=== PATIENT | female | born 1995 | race African-American/Black ===

== ENCOUNTER 2021-09-27 22:15 | Emergency (ER) | payer SELFPAY ==
[2021-09-27 22:19] VITALS: BP 120/84; RESP 20; TEMP 37.1; O2SAT 100
--- NOTE | 2021-09-27 22:20 | ECG_ITS ---
Measurements Intervals [place] Rate: 99 P: 38 CT: 165 QRS: 25 QRSD: 91 T: -5 QT: 325 QTc: 417 Interpretive Statements SINUS RHYTHM EARLY PRECORDIAL R/S TRANSITION MINIMA Q WAVES- HIGH LATERAL LEADS NONSPECIFIC T-WAVE ABNORMALITY- ANTEROLAT/INF LEADS BASELINE ARTIFACT- V3-V6 BORDERLINE ECG Electronically Signed On 09-28-2021 6:45:13 CABLE LACER by Cachorro Turcios D.O.
--- NOTE | 2021-09-27 22:26 | ED.OVERDOSE ---
HPI - Overdose General Chief Complaint: Overdose <Roldan Acuña MD - Last Filed: 09/28/21 01:38> Stated Complaint: INGESTION - SUICIDAL ATTEMPT <Roldan Acuña MD - Last Filed: 09/28/21 01:38> Time Seen by Provider: 09/28/21 02:00 <Roldan Acuña MD - Last Filed: 09/28/21 01:38> Source: patient, EMS and RN notes reviewed <Roldan Acuña MD - Last Filed: 09/28/21 01:38> History of Present Illness HPI Narrative: 26-year-old female [facility] to [facility] for evaluation after an intentional overdose. Patient states this evening she took multiple multivitamins and 22 loratadine with the intent of killing herself. Took the pills at 9 PM. Patient does have a prior history of overdose. Patient states she does have follow-up with a counselor. Patient states that she did this because she felt that she was not needed. Patient also does admit to drinking alcohol with this. <Roldan Acuña MD - Last Filed: 09/28/21 01:38> Related Data Home Medications: Home Medications Medication Instructions Recorded Confirmed No Home Medications 09/28/21 09/28/21 <Roldan Acuña MD - Last Filed: 09/28/21 01:38> Allergies/Adverse Reactions: Allergies Allergy/AdvReac Type Severity Reaction Status Date / Time No Known Allergies Allergy Verified 09/28/21 12:34 <Roldan Acuña MD - Last Filed: 09/28/21 01:38> Review of Systems Review of Systems: CONSTITUTIONAL: Denies fever, chills, or sweats. EYES: Denies visual changes, redness, or discharge. ENT: Denies rhinorrhea, congestion, sore throat, or otalgia. CARDIOVASCULAR: Denies chest pain, palpitations, or edema. RESPIRATORY: Denies cough or dyspnea. GASTROINTESTINAL: Denies abdominal pain, nausea, vomiting, or diarrhea. GENITOURINARY: Denies dysuria or hematuria. SKIN: Denies rash or itching. MUSCULOSKELETAL: Denies back pain, joint pain, or myalgia. NEUROLOGIC: Denies headache, numbness, or weakness. PSYCHIATRIC: Depression and suicidal ideation <Roldan Acuña MD - Last Filed: 09/28/21 01:38> Exam Narrative: APPEARANCE: Well appearing, no pain, no distress, well-nourished. HEAD: normocephalic, atraumatic. EYES: PERRLA/EOMI, conjunctivae clear. THROAT: Pharynx clear, no exudate. NECK: Supple. No adenopathy, no masses. RESPIRATORY: Airway patent, respirations nonlabored. Clear to auscultation bilaterally, no rales, rhonchi, wheezing. CARDIOVASCULAR: Regular rate and rhythm without murmurs rubs or gallops. ABDOMINAL: Soft, nontender, nondistended, normal bowel sounds MUSCULOSKELETAL: Moves all extremities. Strength/ROM intact, No edema, No calf tenderness. NEURO: Alert. Cranial nerves II through XII intact. SKIN: Warm, dry. Normal Color PSYCHIATRIC: flat affect <Roldan Acuña MD - Last Filed: 09/28/21 01:38> Course Course Emergency Course: Poison control was consulted. patient will be medically cleared after 6 hours (3 am). Patient will then need to be seen by the crisis counselor. Patient was signed out to Dr Joseph. <Roldan Acuña MD - Last Filed: 09/28/21 01:38> Reevaluation(s) Reevaluation #1: Patient excepted by Dr. Cardenas at [facility] he was transferred in stable condition <Usama Denson MD - Last Filed: 09/28/21 19:24> Date: 09/28/21 <Usama Denson MD - Last Filed: 09/28/21 19:24> Consultations Consultation #1: Patient was evaluated by crisis and she is a voluntary psychiatric admission patient is currently pending accepting facility <Usama Denson MD - Last Filed: 09/28/21 19:24> Date: 09/28/21 <Usama Denson MD - Last Filed: 09/28/21 19:24> Time: 09:07 <Usama Denson MD - Last Filed: 09/28/21 19:24> Vital Signs Vital signs: Vital Signs Temperature 37.1 C 09/27/21 22:19 Respiratory Rate 20 09/27/21 22:19 Blood Pressure 120/84 09/27/21 22:19 Pulse Oximetry 100 09/27/21 22:19 Temperature 37.1 C
[2021-09-27 22:27] VITALS: RESP 20
--- NOTE | 2021-09-27 22:43 | PC.NURSE ---
[id number] poison control contacted report do not expect to see and side effects from meds taken will fax over information on loratadine
[2021-09-27 22:49] LABS: Basophils Percent Auto 0.5 % (0.2-1.2); Eosinophils Absolute Auto 0.1 K/mm3 (0-0.3); Eosinophils Percent Auto 1.2 % (0-4.4); Hematocrit 33.8 % (37.0-47.0); Hemoglobin 10.7 g/dL (12.0-15.0); Immature Granulocyte Absolute 0.02 K/mm3 (0.00-0.031); Immature Granulocyte Percent A 0.3 % (0-0.5); Lymphocytes Absolute Auto 2.46 K/mm3 (0.9-3.2); Lymphocytes Percent Auto 37.6 % (18.3-44.2); Mean Corpuscular HGB Conc 31.7 g/dl (32-36); Mean Corpuscular Volume 85.4 fl (80-100); Mean Platelet Volume 9.8 fl (7.4-10.4); Monocytes Absolute Auto 0.5 K/mm3 (0.1-0.6); Monocytes Percent Auto 7.8 % (2.6-8.5); Neutrophils Absolute Auto 3.4 K/mm3 (1.3-6.7); Neutrophils Percent Auto 52.6 % (45.5-73.1); Platelet Count Result 312 k/mm3 (150-375); Red Blood Count 3.96 M/mm3 (4.2-5.4); Red Cell Distribution Width 15.5 % (11.5-14.5); White Blood Count 6.5 K/mm3 (4.5-10.0)
[2021-09-27 22:54] LABS: Glucose Point of Care 80 mg/dl (65-105)
[2021-09-27 22:55] LABS: Acetaminophen < 10 ug/mL (10-30); Ethanol 39 mg/dL (<10); Salicylate < 1.0 mg/dL (2-20)
[2021-09-27 22:57] LABS: Alanine Aminotransferase 21 U/L (4-35); Albumin Level 4.4 g/dL (3.5-5.1); Alkaline Phosphatase 67 U/L (38-126); Anion Gap 8 mmol/L (8-16); Aspartate Amino Transferase 28 U/L (14-36); Bilirubin,Total 0.1 mg/dL (0.2-1.3); Blood Urea Nitrogen 5 mg/dL (7-17); Calcium 9.2 mg/dL (8.4-10.2); Carbon Dioxide 25 mmol/L (22-30); Chloride 106 mmol/L (98-107); Estimated CRCL calculation 132 ml/min; Estimated Glomerular Filt Rate > 60; Glucose 81 mg/dL (65-110); Potassium 3.6 mmol/L (3.4-5.0); Sodium 139 mmol/L (137-145)
--- NOTE | 2021-09-27 23:00 | PC.NURSE ---
[id number] spoke with stella purcell at poison control
[2021-09-27 23:06] LABS: Magnesium 2.3 mg/dL (1.6-2.3)
[2021-09-27 23:10] LABS: Add Urine Microscopic? YES; Appearance Urine Clear (Clear); Bacteria Urine Trace /hpf; Bilirubin Urine Negative (Negative); Blood Urine 3+ (Negative); Color Urine Straw (Yellow); Glucose Urine UA Negative (Negative); Ketones Urine Negative (Negative); Leukocyte Esterase Ur Negative LEU/UL (Negative); Nitrate Urine Negative (Negative); Protein Urine Negative (Negative); Squamous Epithelial Cell Urine Rare /hpf (Few); Urobilinogen Urine Negative mg/dL (<2.0); WBC Urine 0-3 /hpf
[2021-09-27 23:12] LABS: Specific Grav Ur 1.002 (1.001-1.035)
[2021-09-27 23:13] LABS: Amphetamine Screen Urine Negative (Negative); Barbiturate Screen Urine Negative (Negative); Benzodiazepines Screen Urine Negative (Negative); Cannabinoid Screen Urine Negative (Negative); Cocaine Screen Urine Negative (Negative); Methadone Screen Urine Negative (Negative); Opiate Screen Urine Negative (Negative); Phencyclidine Screen Urine Negative (Negative)
[2021-09-27 23:17] LABS: SARS-CoV-2 RNA PCR Negative
[2021-09-27 23:31] VITALS: BP 132/89; PULSE 102; RESP 20; O2SAT 100
[2021-09-28 00:26] VITALS: BP 127/96; PULSE 89; RESP 16; O2SAT 100
[2021-09-28 02:14] VITALS: BP 128/82; PULSE 83; RESP 18; O2SAT 98
[2021-09-28 03:09] VITALS: BP 124/87; PULSE 79; RESP 16; O2SAT 100
[2021-09-28 05:49] VITALS: BP 114/80; PULSE 89; RESP 18; O2SAT 100
--- NOTE | 2021-09-28 05:49 | PC.NURSE ---
wakes to voice states I feel fine.
--- NOTE | 2021-09-28 07:00 | PC.NURSE ---
Pt. case released per poison control at [id number].
--- NOTE | 2021-09-28 07:00 | PC.NURSE ---
Assumed care of pt. at this time. Report from МАРИЯ Caraballo
[2021-09-28 07:13] VITALS: BP 123/85; PULSE 85; RESP 14; O2SAT 100
--- NOTE | 2021-09-28 07:41 | PC.NURSE ---
Pooja returned RN call from crisis. agrees to evaluate pt. over the phone. Leann up and on phone for evaluation.
--- NOTE | 2021-09-28 07:43 | PC.NURSE ---
ordered pt. tray.
--- NOTE | 2021-09-28 07:58 | PC.NURSE ---
Pt. agrees to be admitted in patient. makenna requesting a way to send pt. information via email. Sara from care coordination reports she has an email that can be utilized. states she can print a hard copy for ED.
--- NOTE | 2021-09-28 08:33 | PC.NURSE ---
Pt. placed in green scrubs, moved to room 15 with sitter at bedside and report given to МАРИЯ Bee. She assumed care of pt. at this time.
--- NOTE | 2021-09-28 10:44 | PC.NURSE ---
Faxed summary to [facility]
--- NOTE | 2021-09-28 10:44 | PC.NURSE ---
faxed summary to [facility], Also faxed facesheet to [facility] [phone]
--- NOTE | 2021-09-28 11:40 | PC.NURSE ---
pt going to [facility]. Dr Cardenas accepted. Called report to Carmelita [phone]
[2021-09-28 12:33] VITALS: BP 120/75; PULSE 82; RESP 18; O2SAT 100
== END 2021-09-28 13:26 ==
PROVIDERS: Emergency Medicine; Emergency Provider Emergency Medicine
DX: T45.0X2A Poisoning by antiallergic and antiemetic drugs, intentional self-harm, initial encounter (principal); T45.2X2A Poisoning by vitamins, intentional self-harm, initial encounter; Z20.822 Contact with and (suspected) exposure to COVID-19; R94.31 Abnormal electrocardiogram [ECG] [EKG]
CPT/HCPCS: 36415; 80053; 80307; 81001; 81025; 82948; 83735; 84443; 85025; 93005; 99285; C9803; U0003; U0005